=== PATIENT | male | born 1960 | race African-American/Black ===

== ENCOUNTER 2022-01-13 19:09 | Inpatient (IN) | payer OTHER ==
[2022-01-13] MEDS ORDERED: MAGNESIUM CITRATE 300 ML BOTTLE PO PRN (21:36)
[2022-01-13] MEDS ORDERED: LOPERAMIDE HCL 2 MG CAPSULE PO PRN (21:36)
[2022-01-13] MEDS ORDERED: MAG HYDROX/AL HYDROX/SIMETH 30 ML UNIT-DOSE CUP PO PRN (21:36)
[2022-01-13] MEDS ORDERED: P-EPHED 60MG/TRIPROLIDI 2.5MG TABLET PO PRN (21:36)
[2022-01-13] MEDS ORDERED: MAGNESIUM HYDROX 2400MG/30ML ORAL SUSPENSION 30 ML CUP PO PRN (21:36)
[2022-01-13] MEDS ORDERED: ACETAMINOPHEN 325 MG TABLET (FP) PO PRN (21:36)
[2022-01-13] MEDS ORDERED: IBUPROFEN 400 MG TABLET (FP) PO PRN (21:36)
[2022-01-13] MEDS ORDERED: guaiFENesin 200 MG/10 ML 10 ML UNIT-DOSE CUPS PO PRN (21:36)
[2022-01-14 01:47] VITALS: BMI 21.2
[2022-01-14] MEDS: MELATONIN 5 MG TABLETS PO SCH ×2 (06:09→21:30)
[2022-01-14] MEDS: THIAMINE HCL 100 MG TABLET (FP) PO SCH ×2 (06:10→21:30)
[2022-01-14] MEDS: PRENATAL VITAMINS W/ FOLIC ACID TABLET (FP) PO SCH (10:25)
[2022-01-14 10:48] LABS: HEMATOCRIT 37.5 % (35.4-49); HEMOGLOBIN 12.2 GM/dL (11.7-16.9); MCH 30.7 pg (25.7-33.7); MCHC 32.6 g/dl (32.0-35.9); MEAN CELL VOLUME 94.2 fl (80-96); MEAN PLT VOLUME 8.2 fl (7.5-11.1); PLATELET COUNT 294 10^3/uL (134-434); RBC 3.98 M/mm3 (4.00-5.60); RDW 14.3 % (11.9-15.9); WHITE BLOOD COUNT 7.1 K/mm3 (4.0-10.0)
[2022-01-14 10:58] LABS: CALCIUM 9.3 mg/dL (8.5-10.1)
[2022-01-14 10:59] LABS: ALBUMIN 4.1 g/dl (3.4-5.0); BLOOD UREA NITROGEN 22.4 mg/dL (7-18)
[2022-01-14 11:02] LABS: CREATININE 1.1 mg/dL (0.55-1.3)
[2022-01-14 11:04] LABS: BILIRUBIN,TOTAL 0.6 mg/dL (0.2-1); TOT PROT 9.8 g/dl (6.4-8.2)
[2022-01-14] MEDS: EYE OD SCH ×3 (13:45→21:32)
[2022-01-14] MEDS: PREDNISOLONE ACET 1% OD SCH ×3 (13:45→21:32)
[2022-01-14] MEDS: ARTIFICIAL TEARS (POLYVINYL ALCOHOL) OPTH DROPS OU PRN (14:40)
[2022-01-14 17:22] LABS: PH,URINE 5.5 (5.0-8.0); URINE APPEARANCE CLEAR; URINE BILIRUBIN NEGATIVE (NEGATIVE); URINE COLOR YELLOW; URINE GLUCOSE (UA) NEGATIVE (NEGATIVE); URINE KETONE NEGATIVE (NEGATIVE); URINE LEUK ESTERASE NEGATIVE (NEGATIVE); URINE NITRITE NEGATIVE (NEGATIVE); URINE PROTEIN TRACE (NEGATIVE)
[2022-01-14] MEDS: BRIMONIDINE TARTRATE 0.2% OS SCH (21:31)
[2022-01-14] MEDS: LATANOPROST 0.005% OPHTH SOLN 2.5ML BOTTLE OU SCH (21:32)
[2022-01-14] MEDS: PATIENT'S OWN MEDICATION (NON-FORMULARY) (Dorzolamide/Timolol/Pf [Dorzolamide-Timolol 2%-0 OU SCH (21:33)
[2022-01-14] MEDS ORDERED: BRIMONIDINE TARTRATE 0.15% OPHTHALMIC 5 ML BOTTLE OS SCH (22:00)
[2022-01-15] MEDS: PRENATAL VITAMINS W/ FOLIC ACID TABLET (FP) PO SCH (10:23)
[2022-01-15] MEDS: PATIENT'S OWN MEDICATION (NON-FORMULARY) (Dorzolamide/Timolol/Pf [Dorzolamide-Timolol 2%-0 OU SCH ×2 (10:25→23:50)
[2022-01-15] MEDS: BRIMONIDINE TARTRATE 0.2% OS SCH (10:25)
[2022-01-15] MEDS: EYE OD SCH ×3 (10:25→17:38)
[2022-01-15] MEDS: PREDNISOLONE ACET 1% OD SCH ×3 (10:25→17:38)
[2022-01-15] MEDS: ARTIFICIAL TEARS (POLYVINYL ALCOHOL) OPTH DROPS OU PRN (10:25)
[2022-01-15] MEDS: amLODIPine BESYLATE 10 MG TABLET (FP) PO SCH (16:58)
[2022-01-15] MEDS: LATANOPROST 0.005% OPHTH SOLN 2.5ML BOTTLE OU SCH (21:56)
[2022-01-15] MEDS: MELATONIN 5 MG TABLETS PO SCH (21:56)
[2022-01-15] MEDS: THIAMINE HCL 100 MG TABLET (FP) PO SCH (21:56)
[2022-01-15] MEDS: BRIMONIDINE TARTRATE 0.2% OPHTHALMIC 5 ML BOTTLE OU SCH (23:50)
[2022-01-15] MEDS: prednisoLONE ACETATE 1% OPHTH SUSP 5 ML BOTTLE OU SCH (23:50)
[2022-01-16] MEDS: BRIMONIDINE TARTRATE 0.2% OPHTHALMIC 5 ML BOTTLE OU SCH (09:01)
[2022-01-16] MEDS: prednisoLONE ACETATE 1% OPHTH SUSP 5 ML BOTTLE OU SCH (09:01)
[2022-01-16] MEDS: PRENATAL VITAMINS W/ FOLIC ACID TABLET (FP) PO SCH (09:02)
[2022-01-16] MEDS: amLODIPine BESYLATE 10 MG TABLET (FP) PO SCH (09:02)
[2022-01-16] MEDS: PATIENT'S OWN MEDICATION (NON-FORMULARY) (Dorzolamide/Timolol/Pf [Dorzolamide-Timolol 2%-0 OU SCH (09:02)
[2022-01-16 11:16] VITALS: BP 103/75; PULSE 79; TEMP 97.3
== END 2022-01-16 11:29 | DRG 895 ==
LOC: YASAS 19:09 → Y3E 01-14 03:50
PROVIDERS: ADMIT Allergy & Immunology; ATTEND Allergy & Immunology
PROC: HZ42ZZZ Group Counseling for Substance Abuse Treatment, Cognitive-Behavioral (ICD-10-PCS; principal; 2022-01-14)
DX: F11.20 Opioid dependence, uncomplicated (principal); F14.20 Cocaine dependence, uncomplicated; R45.851 Suicidal ideations; F17.210 Nicotine dependence, cigarettes, uncomplicated; F31.9 Bipolar disorder, unspecified; F19.24 Other psychoactive substance dependence with psychoactive substance-induced mood disorder; H40.9 Unspecified glaucoma; H54.62 Unqualified visual loss, left eye, normal vision right eye; I10 Essential (primary) hypertension; R76.11 Nonspecific reaction to tuberculin skin test without active tuberculosis; Z62.810 Personal history of physical and sexual abuse in childhood; Z99.89 Dependence on other enabling machines and devices
CPT/HCPCS: 36415; 71046-TC-FY; 80053; 81003; 85027; 86780; 93005; 93010; C9803; U0003; U0005